=== PATIENT | male | born 1940 | race Caucasian/White ===

== ENCOUNTER 2024-12-14 13:59 | Emergency (ER) | payer MEDICARE ==
[~2024-12-14] VITALS: Ht 172.7 cm; Wt 75.7 kg
[2024-12-14 14:12] VITALS: BP 149/81; TEMP 97.9; O2SAT 99
== END 2024-12-14 14:35 | disposition home or self-care (01) ==
LOC: ER 14:24
DX: R04.0 Epistaxis (principal); Z88.1 Allergy status to other antibiotic agents; Z95.1 Presence of aortocoronary bypass graft